=== PATIENT | female | born 1995 | race American Indian/Alaskan Native ===

== ENCOUNTER 2020-10-13 13:15 | Emergency (ER) | payer OTHER ==
[~2020-10-13] VITALS: Ht 157.5 cm; Wt 83.0 kg
[2020-10-13] MEDS ORDERED: LEVO100T5 PO (13:27)
[2020-10-13] MEDS ORDERED: ACET500P3 PO (13:27)
[2020-10-13] MEDS ORDERED: MULTTAB20 PO (13:27)
[2020-10-13] MEDS ORDERED: ACETAMINOPHEN 500 MG TAB PO ONE (14:30)
[2020-10-13] MEDS ORDERED: NS 1,000 ML IV ONE (14:30)
[2020-10-13] MEDS ORDERED: diphenhydrAMINE 50MG/ML VIAL (J1200) IV ONE (14:30)
[2020-10-13] MEDS ORDERED: METOCLOPRAMIDE INJ 10MG/2ML VIAL (J2765 PER 1) IV ONE (14:30)
[2020-10-13 14:51] LABS: AMORPHOUS SEDIMENT SMALL (NEGATIVE); APPEARANCE, URINE CLOUDY (CLEAR); BACTERIA, URINE AUTO NEGATIVE (NEGATIVE); BILIRUBIN, URINE AUTO NEGATIVE (NEGATIVE); BLOOD, URINE BLOOD NEGATIVE (NEGATIVE); COLOR, URINE YELLOW (YELLOW); GLUCOSE, URINE (UA) AUTO NEGATIVE (NEGATIVE); KETONE, URINE AUTO 2+ mg/dL (NEGATIVE); LEUKOCYTE ESTERASE, URINE AUTO NEGATIVE (NEGATIVE); MUCUS, URINE SMALL (NEGATIVE); NITRITE, URINE AUTO NEGATIVE (NEGATIVE); PROTEIN, URINE AUTO NEGATIVE (NEGATIVE); RBC, URINE AUTO 1 /HPF (0-3); SPECIFIC GRAVITY URINE AUTO 1.016 (1.002-1.035); SQUAMOUS EPITHELIAL CELL UR AU 1 /HPF (0-6); UROBILINOGEN, URINE AUTO 0.2 mg/dL (0.0-2.0); WBC, URINE AUTO 0 /HPF (0-3)
[2020-10-13 15:20] LABS: FREE T4 1.16 NG/DL (0.76-1.46); THYROID STIMULATING HORMONE 1.46 uIU/ML (0.358-3.740)
[2020-10-13 15:47] VITALS: BP 113/63
== END 2020-10-13 15:54 | disposition home or self-care (01) ==
LOC: M ED 13:15
DX: G43.909 Migraine, unspecified, not intractable, without status migrainosus (principal); E03.9 Hypothyroidism, unspecified; Z88.5 Allergy status to narcotic agent; Z79.899 Other long term (current) drug therapy; Z79.890 Hormone replacement therapy; Z3A.14 14 weeks gestation of pregnancy
CPT/HCPCS: 81001; 84439; 84443; 96361; 96374; 96375; 99284; J1200; J2765

== ENCOUNTER 2021-04-09 21:28 | Outpatient (CLI) | payer OTHER ==
[~2021-04-09] VITALS: Ht 157.5 cm; Wt 87.0 kg
[~2021-04-09 21:28] MED LIST: ACET500P3 PO; LEVO100T5 PO; MULTTAB20 PO
[2021-04-09] MEDS ORDERED: ESSE250T PO (21:53)
[2021-04-09] MEDS ORDERED: HOME MED LIST COMPLETE! XX SCH (21:55)
[2021-04-09 21:56] VITALS: BP 123/68
--- NOTE | 2021-04-09 22:53 | IPNPDOC ---
Text Note Date of Service The patient was seen on 04/09/21. NOTE 26 yo at 39+2 weeks gestation presented to L&D with the complaint of worsening contraction pain throughout the day after her office visit. She reports she had her membranes swept in the office this morning and was 2cm dilated. She also endorses some pink discharge. She denies any bleeding or leakage of fluid. She endorses regular movement. Chaperoned by RN Vitals - VSS, afebrile, normotensive, non tachycardic General - AAOX3, sitting up in bed, pleasant and conversant, NAD Abdomen - Gravid uterus, no fundal tenderness Cervix - 2/50/-3, posterior FHR tracing - Cat I with moderate variability, +accels, no decels. Intermittent ctx on toco. No cervical change since office visit at 0900 this AM. Reassuring status. I offered to re check her cervix in 2 hours for change but Fiordaliza declined and desired to return home. We discussed return precautions. All questions answered. 30 minutes Slava Galeas, I+O VSSlava, I+O Vital Signs Date Time Temp Pulse Resp B/P (MAP) Pulse Ox O2 Delivery O2 Flow Rate FiO2 04/09/21 21:56 98.5 78 16 123/68 (86) Room Air DOTTIE PETE DO Apr 09, 2021 22:53
== END 2021-04-09 22:45 | disposition home or self-care (01) ==
LOC: M LDO 21:28
PROVIDERS: ATTEND Obstetrics & Gynecology
DX: O60.03 Preterm labor without delivery, third trimester (principal); O26.893 Other specified pregnancy related conditions, third trimester; N89.8 Other specified noninflammatory disorders of vagina; Z3A.39 39 weeks gestation of pregnancy
CPT/HCPCS: 59025; G0378; G0463

== ENCOUNTER 2021-04-11 10:32 | Inpatient (IN) | payer OTHER ==
[~2021-04-11] VITALS: Ht 157.5 cm; Wt 86.9 kg
[2021-04-11] VITALS (13 sets, daily range): BP systolic 99–136; BP diastolic 57–73
[~2021-04-11 10:32] MED LIST changes: +ESSE250T PO
[2021-04-11] MEDS ORDERED: OXYTOCIN DRIP 30 UNITS in IV 1 EA IV PRN ×4 (12:05)
[2021-04-11] MEDS ORDERED: OXYTOCIN INJ 10 UNITS/ML VIAL (J2590) IV PRN (12:05)
[2021-04-11] MEDS ORDERED: METHYLERGONOVINE MALEATE 0.2 MG/ML VIAL (J2210) IM PRN (12:05)
[2021-04-11] MEDS ORDERED: LACTATED RINGER'S 1000 ML IV ONE (12:05)
[2021-04-11] MEDS ORDERED: LEVO50TA5 PO (12:09)
[2021-04-11] MEDS ORDERED: HOME MED LIST COMPLETE! XX SCH (12:10)
[2021-04-11] MEDS: LR 1,000 ML IV SCH ×2 (12:58→18:28)
[2021-04-11 13:33] LABS: HEMATOCRIT 36.8 % (36.0-47.0); HEMOGLOBIN 12.1 g/dl (12.0-15.5); MEAN CORPUSCULAR HEMOGLOBIN 31.6 pg (27.0-33.0); MEAN CORPUSCULAR HGB CONC 32.9 g/dl (32.0-36.5); MEAN CORPUSCULAR VOLUME 96.1 fl (80.0-96.0); PLATELET COUNT, AUTOMATED 212 10^3/uL (150-450); RED BLOOD COUNT 3.83 10^6/uL (4.00-5.40); WHITE BLOOD COUNT 8.1 10^3/uL (4.0-10.0)
[2021-04-11] MEDS: LEVOTHYROXINE 100MCG TABLET (0.1MG) PO SCH (13:33)
[2021-04-11] MEDS ORDERED: FENTANYL 2MCG/ML ROPIVACAINE 0.2% IN 0.9% NACL 100ML IVBAG As Ordered ONE (17:10)
[2021-04-11] MEDS ORDERED: diphenhydrAMINE 50MG/ML VIAL (J1200) IV PRN (17:40)
[2021-04-11] MEDS ORDERED: FENTANYL/ROPIVACAINE/NACL BAG 100 ML EPIDURAL SCH (17:40)
[2021-04-11] MEDS ORDERED: NALOXONE INJ 0.4MG/1ML VIAL (J2310 PER 1MG) IV PRN (17:40)
[2021-04-11] MEDS ORDERED: ONDANSETRON 4MG/2ML VIAL IV PRN (17:40)
[2021-04-11] MEDS ORDERED: EPIDURAL COMMENT XX SCH (17:40)
[2021-04-11] MEDS ORDERED: LACTATED RINGER'S 1000 ML IV PRN (17:40)
[2021-04-11] MEDS ORDERED: EPIDURAL/PCA KEYS XX PRN (17:40)
[2021-04-11] MEDS ORDERED: REFRIGERATOR IV KEYS XX PRN (17:40)
[2021-04-11] MEDS ORDERED: ePHEDrine SULFATE 25 MG/5 ML(5MG/ML) SYRINGE IV PRN (17:40)
[2021-04-11 19:52] LABS: CORD GAS ABE V -4.8; CORD GAS HCO3 V 20.3 MEQ/L; CORD GAS O2 SAT V 73.5 %; CORD GAS PCO2 V 38.4 mmHg; CORD GAS PH V 7.342 UNITS; CORD GAS PO2 A > 700.0 mmHg; CORD GAS PO2 V 29.5 mmHg; CORD GAS SBC V 19.9 MEQ/L; CORD GAS TCO2 V 21.5 MEQ/L
[2021-04-11 19:55] LABS: CORD GAS ABE A -2.5; CORD GAS HCO3 A 26.6 MEQ/L; CORD GAS PCO2 A 64.2 mmHg; CORD GAS PH A 7.235 UNITS; CORD GAS TCO2 A 28.6 MEQ/L
[2021-04-11] MEDS ORDERED: IBUPROFEN 800 MG TAB PO PRN (20:25)
[2021-04-11] MEDS ORDERED: OXYTOCIN DRIP 30 UNITS in IV 1 EA IV ONE (20:25)
[2021-04-11] MEDS ORDERED: ANUSOL HC CREAM 30GM TOP PRN (20:25)
[2021-04-11] MEDS ORDERED: METHYLERGONOVINE MALEATE 0.2 MG TAB PO PRN (20:25)
[2021-04-11] MEDS ORDERED: MOM 30ML SUSPENSION UDC PO PRN (20:25)
[2021-04-11] MEDS ORDERED: IBUPROFEN 600MG TAB PO PRN (20:25)
[2021-04-11] MEDS ORDERED: DOCUSATE SODIUM 100MG CAPSULE PO PRN (20:25)
[2021-04-11] MEDS ORDERED: MEASLES,MUMPS,RUBELLA VACCINE INJ (MMR-II) (90707) SC SCH (20:25)
[2021-04-11] MEDS ORDERED: RHOGAM 300 MCG (1500 IU) INJ (J2790) IM SCH (20:25)
[2021-04-11] MEDS ORDERED: ACETAMINOPHEN 500 MG TAB PO PRN (20:25)
[2021-04-11] MEDS ORDERED: LR 1,000 ML IV SCH (20:25)
[2021-04-11] MEDS ORDERED: DIBUCAINE 1% OINTMENT 30GM TOP PRN (20:25)
--- NOTE | 2021-04-11 20:56 | DN ---
DELIVERY NOTE DATE OF DELIVERY: 04/11/2021 DESCRIPTION OF DELIVERY: This lady was admitted at 39 and 4 weeks of gestation with active labor, moderate contractions. Nitrazine was negative. Fern was negative. She had an epidural in place and having had an AROM, draining black-stained meconium liquor and neonatology was notified. Patient rapidly dilated up to full dilatation, over an intact perineum, delivered a livebirth male , suctioned at the perineum, 3220 gm, Apgars of 8 and 9 at 1 and 5 minutes respectively. Cord was around the neck x1. Arterial pH was 7.23 base excess minus 2.5, venous pH 7.34, base excess minus 4.8. Cord and placenta delivered spontaneously after very heavily meconium stained. On examination, the uterus contracted well while on Pitocin, spontaneous delivery of the placenta, three vessels, membranes and tissues intact. Anterior, posterior and lateral rodriguez were complete. Sphincter was tight. The patient had a previous second degree and third degree tear. There was no evidence of same. The patient and baby Patient and baby tolerating procedure well. Estimated blood loss: 100 mL. [facility]
[2021-04-12 06:00] VITALS: BP 125/72
[2021-04-12] MEDS ORDERED: LEVOTHYROXINE 100MCG TABLET (0.1MG) PO SCH (06:00)
[2021-04-12] MEDS: LEVOTHYROXINE 100MCG TABLET (0.1MG) PO SCH (06:36)
[2021-04-12] MEDS: ACETAMINOPHEN TAB 650MG DOSE (2X325MG) PO PRN (06:37)
[2021-04-12] MEDS: PRENATAL VITAMINS CHEWABLE TABLET PO SCH (09:25)
[2021-04-12 09:51] LABS: HEMATOCRIT 32.8 % (36.0-47.0); HEMOGLOBIN 10.9 g/dl (12.0-15.5); MEAN CORPUSCULAR HEMOGLOBIN 32.2 pg (27.0-33.0); MEAN CORPUSCULAR HGB CONC 33.2 g/dl (32.0-36.5); MEAN CORPUSCULAR VOLUME 96.8 fl (80.0-96.0); PLATELET COUNT, AUTOMATED 193 10^3/uL (150-450); RED BLOOD COUNT 3.39 10^6/uL (4.00-5.40); WHITE BLOOD COUNT 8.5 10^3/uL (4.0-10.0)
--- NOTE | 2021-04-12 11:08 | IPN ---
PROGRESS NOTE DATE: 04/12/2021 day #1 SUBJECTIVE: This patient is a 26-year-old, 3, para 2, admitted in active labor at 39 and 4 weeks of gestation, delivered a livebirth male infant, 7 lb, 2 oz, 3220 gm, Apgars of 8 and 9 in 1 and 5 minutes respectively. Arterial pH 7.23, base excess minus 2.5, venous pH 7.34, base excess minus 4.8. Admitting hemoglobin 12.1, hematocrit 36.8 and platelets are 212. OBJECTIVE: Her vital signs this morning: Blood pressure 125/72, respirations 20, pulse 65, temperature is 98.1. We discussed phlebitis, cystitis, mastitis, endometritis and cellulitis, diet and exercise, pain management, perineal, breast and wound care. The rest of the examination: Unremarkable, normocephalic, atraumatic. Neck: Full range of motion. Pupils: Equal and reactive to light. Distal pulses symmetric. No evidence of DVT, PE or superficial phlebitis. Chest is clear, bilateral bases, no wheezes or rhonchi. No CVA tenderness. Abdomen is soft. Four quadrant bowel sounds are noted. Lochia is moderate. No urgency or frequency. No nausea, vomiting, diarrhea or constipation. Breast-feeding is going well. Pain management appropriate, having passed gas and mobilizing. 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 All questions were answered. We await clearance by the community support associate for circumcision of her male . The patient is presently taking a hypothyroid medication. We will have a six week postop TSH, reflex T4. [facility]
--- NOTE | 2021-04-12 12:14 | IPN ---
PROGRESS NOTE DATE: 04/12/2021 SUBJECTIVE: This patient requested circumcision of her male infant. After discussing the risks and benefits of circumcision, the medical, the non-medical indications, the penile block and aftercare, expressed understanding of penile block, aftercare and bleeding, signed the consent form. All questions were answered. Twenty minute discussion. We await clearance by the lotus notes administrator. JOSE DANIEL
[2021-04-12 17:53] VITALS: BP 131/70
[2021-04-13] MEDS: ACETAMINOPHEN TAB 650MG DOSE (2X325MG) PO PRN (02:11)
[2021-04-13 06:10] VITALS: BP 109/68
[2021-04-13] MEDS: LEVOTHYROXINE 100MCG TABLET (0.1MG) PO SCH (06:13)
[2021-04-13] MEDS ORDERED: DIBU28OI2 TOP (06:39)
[2021-04-13] MEDS ORDERED: IBUP-1022 PO (06:39)
[2021-04-13] MEDS ORDERED: ACET-683 PO (06:39)
--- NOTE | 2021-04-13 06:41 | DS.PDOC ---
Discharge Summary General Date of Admission Apr 11, 2021 at 11:01 Date of Discharge Apr 13, 2021 Discharge Summary HOSPITAL COURSE: Ms. Woo is a 26 yo G3 now P2 who underwent an uncomplicated on 11Apr2021 after being admitted for active labor. Her course was unremarkable. On her day of discharge she met all appropriate discharge criteria. She was ambulating, voiding, tolerating a regular diet, and had minimal lochia. DISCHARGE MEDICATIONS: Please see below. ALLERGIES: Please see below. PHYSICAL EXAMINATION ON DISCHARGE: VITAL SIGNS: Please see below. GENERAL: AAOX3, NAD ABDOMINAL EXAMINATION: Fundus firm at U-2. No fundal tenderness EXTREMITIES: No edema PSYCHIATRIC EXAMINATION: Affect appropriate LABORATORY DATA: Please see below. ACTIVITY: Pelvic rest for 6 weeks DIET: Regular DISCHARGE PLAN: Discharge home DISPOSITION: Discharge home on 13Apr2021 DISCHARGE INSTRUCTIONS: 1. Nothing in the vagina for 6 weeks ITEMS TO FOLLOWUP ON ON OUTPATIENT: 1. Call to schedule a visit for 6 weeks post delivery DISCHARGE CONDITION: Stable. TIME SPENT ON DISCHARGE: Greater than 20 minutes. Dottie Nunez DO Vital Signs/I&Os Vital Signs Date Time Temp Pulse Resp B/P (MAP) Pulse Ox O2 Delivery O2 Flow Rate FiO2 04/13/21 06:10 97.2 62 19 109/68 (82) 96 04/12/21 17:53 Room Air Laboratory Data Labs 24H Laboratory Tests 2 04/12/21 09:33: Nucleated Red Blood Cells % (auto) 0.0 CBC/BMP Laboratory Tests 04/12/21 09:33 Discharge Medications Scheduled No122/Iron/Folic Acid ( Multi Tablet) 1 Each Tablet, 1 TAB PO DAILY, (Reported) Scheduled PRN Acetaminophen (Acetaminophen) 500 Mg Tablet, 1,000 MG PO Q6HP PRN for PAIN LEVEL 6-10 Dibucaine (Dibucaine) 28 Gm Oint...g., 0 DOSE TOP Q4H PRN for HEMORRHOIDS Ibuprofen (Ibuprofen) 600 Mg Tablet, 600 MG PO Q6HP PRN for PAIN LEVEL 1-5 Miscellaneous Medications Levothyroxine Sodium (Levothyroxine Sodium) 50 Mcg Tablet, 100 MCG PO, (Reported) Allergies Coded Allergies: oxycodone (Verified Allergy, Intermediate, hives, 10/13/20) DOTTIE NUNEZ DO Apr 13, 2021 06:41
[2021-04-13] MEDS: PRENATAL VITAMINS CHEWABLE TABLET PO SCH (09:38)
== END 2021-04-13 13:00 | disposition home or self-care (01) | DRG 807 ==
LOC: M LDO 10:32 → M LDI 11:01 → M OBS 22:00
PROVIDERS: ADMIT Obstetrics & Gynecology; ATTEND Obstetrics & Gynecology
PROC: 10E0XZZ Delivery of Products of Conception, External Approach (ICD-10-PCS; principal; 2021-04-11)
PROC: 10907ZC Drainage of Amniotic Fluid, Therapeutic from Products of Conception, Via Natural or Artificial Opening (ICD-10-PCS; 2021-04-11)
DX: O69.81X0 Labor and delivery complicated by cord around neck, without compression, not applicable or unspecified (principal); Z37.0 Single live birth; O77.0 Labor and delivery complicated by meconium in amniotic fluid; Z3A.39 39 weeks gestation of pregnancy

== ENCOUNTER 2021-06-01 11:34 | Emergency (ER) | payer OTHER ==
[~2021-06-01] VITALS: Ht 157.5 cm; Wt 77.1 kg
[~2021-06-01 11:34] MED LIST changes: +ACET-683 PO; +DIBU28OI2 TOP; +IBUP-1022 PO; +LEVO50TA5 PO
[2021-06-01] MEDS ORDERED: NS 1,000 ML IV ONE (11:55)
[2021-06-01] MEDS ORDERED: ACETAMINOPHEN 500 MG TAB PO ONE (11:55)
[2021-06-01] MEDS ORDERED: ONDANSETRON 4MG/2ML VIAL IV ONE (11:55)
[2021-06-01 12:31] LABS: BASO % 0.1 % (0.0-1.0); EOS # 0.1 10^3/uL (0.0-0.5); EOS % 1.6 % (0.0-3.0); HEMATOCRIT 41.4 % (36.0-47.0); HEMOGLOBIN 13.5 g/dl (12.0-15.5); LYMPH # 1.7 10^3/uL (1.5-5.0); LYMPH % 24.2 % (24.0-44.0); MEAN CORPUSCULAR HEMOGLOBIN 30.6 pg (27.0-33.0); MEAN CORPUSCULAR HGB CONC 32.6 g/dl (32.0-36.5); MEAN CORPUSCULAR VOLUME 93.9 fl (80.0-96.0); MONO # 0.6 10^3/uL (0.0-0.8); MONO % 8.4 % (2.0-8.0); NEUTROPHILS # 4.5 10^3/uL (1.5-8.5); NEUTROPHILS % 65.4 % (36.0-66.0); PLATELET COUNT, AUTOMATED 234 10^3/uL (150-450); RED BLOOD COUNT 4.41 10^6/uL (4.00-5.40); WHITE BLOOD COUNT 6.9 10^3/uL (4.0-10.0)
[2021-06-01 12:59] LABS: CK-MB VALUE MASS < 1.0 NG/ML (<3.6); CPK CREATINE PHOSPHOKINASE 56 U/L (26-192); MB/CK RELATIVE INDEX 1.79 (< OR =4)
[2021-06-01 13:07] LABS: ALBUMIN 3.4 GM/DL (3.2-5.2); ALT/SGPT 44 U/L (12-78); BILIRUBIN,TOTAL 0.4 MG/DL (0.2-1.0); BLOOD UREA NITROGEN 12 MG/DL (7-18); CARBON DIOXIDE LEVEL 26 MEQ/L (21-32); CHLORIDE LEVEL 107 MEQ/L (98-107); CREATININE FOR GFR 0.72 MG/DL (0.55-1.30); FREE THYROXINE INDEX 5.7 % (1.3-4.8); GLOMERULAR FILTRATION RATE > 60.0 (>60); GLUCOSE, FASTING 84 MG/DL (70-100); MAGNESIUM LEVEL 1.8 MG/DL (1.8-2.4); SODIUM LEVEL 140 MEQ/L (136-145); T UPTAKE 38 % (30-39); THYROID STIMULATING HORMONE 0.021 uIU/ML (0.358-3.740); TOTAL PROTEIN 6.9 GM/DL (6.4-8.2)
[2021-06-01 14:15] VITALS: BP 138/69
== END 2021-06-01 14:32 | disposition home or self-care (01) ==
LOC: EDBD 11:34 → M ED 13:42
DX: S30.0XXA Contusion of lower back and pelvis, initial encounter (principal); S06.0X9A Concussion with loss of consciousness of unspecified duration, initial encounter; W00.9XXA Unspecified fall due to ice and snow, initial encounter; Y92.099 Unspecified place in other non-institutional residence as the place of occurrence of the external cause; Y93.9 Activity, unspecified; Y99.9 Unspecified external cause status; R55 Syncope and collapse; R94.6 Abnormal results of thyroid function studies; M43.06 Spondylolysis, lumbar region; Z79.899 Other long term (current) drug therapy; Z88.5 Allergy status to narcotic agent

== ENCOUNTER 2022-05-11 15:16 | Emergency (ER) | payer OTHER ==
[~2022-05-11] VITALS: Ht 157.5 cm; Wt 81.7 kg
[2022-05-11 16:09] LABS: EOS # 0.3 10^3/uL (0.0-0.5); EOS % 3.3 % (0.0-3.0); HEMATOCRIT 41.2 % (36.0-47.0); HEMOGLOBIN 13.3 g/dl (12.0-15.5); LYMPH # 1.8 10^3/uL (1.5-5.0); LYMPH % 21.1 % (24.0-44.0); MEAN CORPUSCULAR HEMOGLOBIN 30.6 pg (27.0-33.0); MEAN CORPUSCULAR HGB CONC 32.3 g/dl (32.0-36.5); MEAN CORPUSCULAR VOLUME 94.7 fl (80.0-96.0); MONO # 0.7 10^3/uL (0.0-0.8); MONO % 8.1 % (2.0-8.0); NEUTROPHILS # 5.7 10^3/uL (1.5-8.5); NEUTROPHILS % 67.3 % (36.0-66.0); PLATELET COUNT, AUTOMATED 296 10^3/uL (150-450); RED BLOOD COUNT 4.35 10^6/uL (4.00-5.40); WHITE BLOOD COUNT 8.5 10^3/uL (4.0-10.0)
[2022-05-11 16:33] LABS: BLOOD UREA NITROGEN 7 MG/DL (9-23); CALCIUM LEVEL 8.6 MG/DL (8.5-10.1); CARBON DIOXIDE LEVEL 25 MMOL/L (20-31); CHLORIDE LEVEL 104 MMOL/L (98-107); CREATININE FOR GFR 0.54 MG/DL (0.55-1.30); GLOMERULAR FILTRATION RATE > 60.0 (>60); GLUCOSE, FASTING 83 MG/DL (60-100); POTASSIUM SERUM 3.8 MMOL/L (3.5-5.1); SODIUM LEVEL 138 MMOL/L (136-145)
[2022-05-11 16:47] LABS: HCG, SERUM QUANTITATIVE 9997.2 MIU/ML (<4.2)
[2022-05-11 17:16] VITALS: BP 101/56
== END 2022-05-11 17:27 | disposition home or self-care (01) ==
LOC: M ED 15:16
DX: O20.0 Threatened abortion (principal); Z3A.01 Less than 8 weeks gestation of pregnancy; Z88.5 Allergy status to narcotic agent